=== PATIENT | male | born 1995 | race African-American/Black ===

== ENCOUNTER 2020-03-15 12:29 | Emergency (ER) | payer OTHER ==
[~2020-03-15] VITALS: Ht 167.6 cm; Wt 81.6 kg
[2020-03-15 12:35] VITALS: TEMP 99.2
[2020-03-15 14:30] VITALS: BP 123/63
== END 2020-03-15 14:30 | disposition home or self-care (01) ==
LOC: ED 12:29
DX: T63.441A Toxic effect of venom of bees, accidental (unintentional), initial encounter (principal); R22.1 Localized swelling, mass and lump, neck; Y92.89 Other specified places as the place of occurrence of the external cause
CPT/HCPCS: 36415; 96360; 96375; 99284; J1100; J1200